=== PATIENT | male | born 1955 | race Hispanic/Latino ===

== ENCOUNTER 2022-03-04 12:30 | Outpatient (CLI) | payer MEDICARE ==
[2022-03-04 13:20] LABS: #Basophils 0.1 10x3/uL (0.0-0.2); #Eosinphils 0.4 10x3/uL (0.0-0.5); #Monocytes 0.5 10x3/uL (0.0-1.1); %Basophils 0.7 % (0.0-2.0); %Eosinophils 5.6 % (0.0-6.0); %Lymphocytes 29.3 % (18.0-47.0); %Monocytes 6.9 % (0.0-10.0); %Neutrophils 57.4 % (40.0-75.0); Hemoglobin 14.6 g/dL (13.5-17.5); Mean Corpuscular Hemoglobin 30.2 pg (27.0-33.0); Mean Corpuscular Volume 88.6 fl (81.2-95.1); Mean Platelet Volume 9.6 fl (7.4-10.4); Platelet Count 289 10x3/uL (150-450); RBC Distribution Width 12.2 % (11.5-14.5); Red Blood Cell (RBC) Count 4.84 10x6/uL (4.32-5.72)
[2022-03-04 13:47] LABS: ALT (SGPT) 17 U/L (8-55); AST (SGOT) 18 U/L (5-34); Albumin 4.1 g/dL (3.4-4.8); Alkaline Phosphatase 63 U/L (40-110); Anion Gap 16 mmol/L (10-20); BUN (Urea Nitrogen) 12 mg/dL (8.4-25.7); Bilirubin, Total 0.6 mg/dL (0.2-1.2); Calc. Creatinine Clearance 0 mL/min (70-130); Calcium 9.3 mg/dL (7.8-10.44); Carbon Dioxide 24 mmol/L (23-31); Chloride 104 mmol/L (98-107); Globulin 3.1 g/dL (2.4-3.5); Glucose 116 mg/dL (80-115); Potassium 4.2 mmol/L (3.5-5.1); Protein, Total 7.2 g/dL (5.8-8.1); Sodium 140 mmol/L (136-145)
[2022-03-04 23:57] LABS: SARS-CoV-2 PCR by NAA Not Detected (NotDetected)
== END 2022-03-04 12:31 | disposition home or self-care (01) ==
LOC: LABBT 12:30
PROVIDERS: ATTEND Internal Medicine Cardiovascular Disease
DX: Z01.812 Encounter for preprocedural laboratory examination (principal); Z20.822 Contact with and (suspected) exposure to COVID-19
CPT/HCPCS: 80053; 85025; U0003; U0005

== ENCOUNTER 2022-03-09 05:47 | Day surgery (SDC) | payer MEDICARE ==
[2022-03-08 09:42] VITALS: BMI 30.7
[2022-03-09] MEDS ORDERED: Heparin 10,000 UNITS/ 10 ML VIAL ONE (06:23)
[2022-03-09] MEDS ORDERED: Midazolam HCl 2 mg/2 ml Vial ONE (07:10)
[2022-03-09] MEDS ORDERED: Fentanyl 100 MCG/2 ML VIAL ONE (07:10)
[2022-03-09 07:30] LABS: Cardiac Risk 3.5 (Less than 4.5)
[2022-03-09] MEDS ORDERED: Iopamidol 370 76% 100 ML VIAL ONE (08:45)
== END 2022-03-09 11:18 | disposition home or self-care (01) ==
LOC: SDC 05:47
PROVIDERS: ATTEND Internal Medicine Cardiovascular Disease
PROC: 4A023N7 Measurement of Cardiac Sampling and Pressure, Left Heart, Percutaneous Approach (ICD-10-PCS; principal; 2022-03-09)
PROC: B2111ZZ Fluoroscopy of Multiple Coronary Arteries using Low Osmolar Contrast (ICD-10-PCS; 2022-03-09)
PROC: B2131ZZ Fluoroscopy of Multiple Coronary Artery Bypass Grafts using Low Osmolar Contrast (ICD-10-PCS; 2022-03-09)
PROC: B2181ZZ Fluoroscopy of Left Internal Mammary Bypass Graft using Low Osmolar Contrast (ICD-10-PCS; 2022-03-09)
DX: R07.89 Other chest pain (principal); I25.10 Atherosclerotic heart disease of native coronary artery without angina pectoris; I25.82 Chronic total occlusion of coronary artery; T82.857A Stenosis of other cardiac prosthetic devices, implants and grafts, initial encounter; Z79.82 Long term (current) use of aspirin; Z79.84 Long term (current) use of oral hypoglycemic drugs; Z79.899 Other long term (current) drug therapy; Z88.0 Allergy status to penicillin
CPT/HCPCS: 80061; 93459; 99152; 99153; J1644; J2250; J3010; Q9967